=== PATIENT | male | born 2000 | race Caucasian/White ===

== ENCOUNTER 2021-08-04 16:03 | Emergency (ER) | payer SELFPAY ==
[~2021-08-04] VITALS: Ht 167.6 cm; Wt 75.0 kg
[2021-08-04] MEDS ORDERED: IV NORMAL SALINE 1,000ML 1,000 ML IV ONE (16:30)
--- NOTE | 2021-08-04 16:32 | PHYS DOC ---
Past History Past Medical History: Anxiety, Depression (BARTOLO VYAS MD) Past Surgical History: No Surgical History (CAMELIA GARCIA MD) General Adult EDM: Chief Complaint: OVERDOSE HPI: HPI: Patient is a 20-year-old male coming in via EMS after overdose. EMS states that patient took 20 to 30 mg tablets of Vyvanse. The prescription was not his. He states that it was about an hour prior to arrival, and family induced vomiting. Per EMS the family was looking for him because he had told him that he was going to overdose, states that he does not like where is [facility] right now. Patient is currently denying suicide attempt. He is withholding with history will not answer all questions. Denies any coingestions or recent illness. Denies any prior suicide attempt. (CAMELIA GARCIA MD) Review of Systems: Review of Systems: All other systems within normal limits except for as noted in the HPI (CAMELIA GARCIA MD) Current Medications: Current Meds: Current Medications Medications (Trade) Dose Ordered Sig/Amisha Start Time Stop Time Status Last Admin Dose Admin Sodium Chloride 1,000 ml @ 1,000 mls/hr 1X ONCE 08/04/21 16:30 08/04/21 17:29 UNV (CAMELIA GARCIA MD) Allergies: Allergies: Allergies Coded Allergies Type Severity Reaction Last Updated Verified No Known Drug Allergies 08/04/21 No (CAMELIA GARCIA MD) Physical Exam: PE: Constitutional: Well developed, well nourished, no acute distress, non-toxic appearance. [] HENT: Normocephalic, atraumatic, bilateral external ears normal, nose normal. [] Eyes: PERRLA, conjunctiva normal, no discharge. [] Neck: No rigidity, supple, no stridor. [] Cardiovascular: Regular rate and rhythm, brisk cap refill [] Lungs & Thorax: Non labored symmetric respirations, no tachypnea or respiratory distress [] Abdomen: Soft, nondistended. Skin: Warm, dry, no erythema, no rash. [] Back: Unremarkable Extremities: No deformities, range of motion grossly intact, no lower extremity edema [] Neurologic: Alert and oriented X 3, no focal deficits noted. [] Psychologic: Denies hallucinations, overdose but denies suicide attempt. (CAMELIA GARCIA MD) Current Patient Data: Vital Signs: Vital Signs Date Time Temp Pulse Resp B/P (MAP) Pulse Ox O2 Delivery O2 Flow Rate FiO2 08/04/21 16:08 98.1 75 18 151/85 (107) 100 (CAMELIA GARCIA MD) EKG: EKG: Sinus rhythm, heart rate 66, normal axis, no STEMI [] (CAMELIA GARCIA MD) EKG: My interpretation second EKG shows a sinus tachycardia at 103 bpm. No findings of acute STEMI with contralateral changes. No significant interval change from EKG at 427 hours. Time of this EKG [id number] hours. My interpretation of fourth EKG shows sinus rhythm at 80 bpm. No acute morphology time of fourth EKG is 2305 hrs. (BARTOLO VYAS MD) Radiology/Procedures: Radiology/Procedures: [] (CAMELIA GARCIA MD) Heart Score: C/O Chest Pain: No Risk Factors: Risk Factors: DM, Current or recent (<one month) smoker, HTN, HLP, family history of CAD, obesity. Risk Scores: Score 0 - 3: 2.5% MACE over next 6 weeks - Discharge Home Score 4 - 6: 20.3% MACE over next 6 weeks - Admit for Clinical Observation Score 7 - 10: 72.7% MACE over next 6 weeks - Early Invasive Strategies (CAMELIA GARCIA MD) Course & Med Decision Making: Course & Med Decision Making Per poison control not need to give activated charcoal since family had induced vomiting. Recommend observation for 6 hours with benzos as needed for agitation and tachycardia. (CAMELIA GARCIA MD) Course & Med Decision Making See Garcia chart for details prior shift change. Poison control advised 6 hr. observation for significant side effects of the over dosage. See the PAT eval. PCR COVID pending. Pt. discharged home on safety plan. Per PAT Impression: 1. Over Dosage- Took 20 dosages of Vyanse 30 mg 2. Hx of Depression 3. Hx. of Anxiety 4. Mild Leukocytosis 18.6 5. Viral Syndrome (BARTOLO VYAS MD) Dragon Disclaimer: Dragon Disclaimer: This electronic medical record was generated, in whole or in part, using a voice recognition dictation system. (CAMELIA GARCIA MD) Dragon Disclaimer This chart was dictated in whole or in part using Voice Recognition software in a busy, high-work load, and often noisy Emergency Department environment. It may contain unintended and wholly unrecognized errors or omissions. (BARTOLO VYAS MD) CAMELIA GARCIA MD August 04, 2021 16:32 BARTOLO VYAS MD August 04, 2021 18:48
[2021-08-04 17:35] LABS: BASO % 0 % (0-3); EOS # 0.1 x10^3/uL (0.0-0.7); EOS % 1 % (0-3); HEMOGLOBIN 16.3 g/dL (13.0-17.5); LYMPH # 2.1 x10^3/uL (1.0-4.8); LYMPH % 11 % (24-48); MEAN CORPUSCULAR HEMOGLOBIN 32 pg (25-35); MEAN CORPUSCULAR HGB CONC 35 g/dL (31-37); MEAN CORPUSCULAR VOLUME 89 fL (79-100); MONO # 0.9 x10^3/uL (0.0-1.1); MONO % 5 % (0-9); NEUT # 15.4 x10^3uL (1.8-7.7); NEUT % 83 % (31-73); PLATELET COUNT 257 x10^3/uL (140-400); RED BLOOD COUNT 5.16 x10^6/uL (4.30-5.70); WHITE BLOOD COUNT 18.6 x10^3/uL (4.0-11.0)
[2021-08-04 17:41] LABS: CALCIUM 8.9 mg/dL (8.5-10.1); CREATININE 0.8 mg/dL (0.7-1.3); POTASSIUM 4.2 mmol/L (3.5-5.1)
[2021-08-04 17:47] LABS: ACETAMIN < 2.0 mcg/mL (10-30); ETHANOL < 10 mg/dL (0-10); SALIC 0.6 mg/dL (2.8-20.0)
[2021-08-04 17:48] LABS: ALBUMIN 4.1 g/dL (3.4-5.0); ALBUMIN/GLOBULIN RATIO 1.2 (1.0-1.7); PHOSPHORUS 2.8 mg/dL (2.6-4.7); TOTAL BILIRUBIN 0.6 mg/dL (0.2-1.0); TOTAL PROTEIN 7.4 g/dL (6.4-8.2)
[2021-08-04 18:00] LABS: % LYMPHS 12 % (24-48); % MONOS 5 % (0-10); % SEGS 83 % (35-66); PLT ESTIMATE ADEQUATE (ADEQUATE)
[2021-08-04 19:55] LABS: BACTERIA,URINE 0 /HPF (0-FEW); CLARITY,URINE CLEAR; COLOR,URINE YELLOW; GLUCOSE,URINE NEG (NEG); NITRITE,URINE NEG (NEG); RBC,URINE 0 /HPF (0-2); SQUAMOUS EPITHELIAL CELL,UR OCC /LPF; UROBILINOGEN,URINE 0.2 mg/dL (0.2 mg/dL); WBC,URINE 0 /HPF (0-4)
[2021-08-04 19:59] LABS: BARBITURATES NEG (NEG); BENZODIAZEPINES NEG (NEG); CANNABINOIDS POS (NEG); COCAINE NEG (NEG); METHADONE NEG (NEG); OPIATES NEG (NEG); PHENCYCLIDINE NEG (NEG)
[2021-08-04 20:03] LABS: AMPHETAMINE/METHAMPHETAMINE POS (NEG)
[2021-08-04 20:05] LABS: INFLUENZA A PATIENT NEGATIVE (NEGATIVE); INFLUENZA B PATIENT NEGATIVE (NEGATIVE)
[2021-08-05 00:42] VITALS: BP 167/89
== END 2021-08-05 00:27 | disposition home or self-care (01) ==
LOC: ER 16:03
DX: T50.991A Poisoning by other drugs, medicaments and biological substances, accidental (unintentional), initial encounter (principal); D72.829 Elevated white blood cell count, unspecified; B34.9 Viral infection, unspecified; F41.9 Anxiety disorder, unspecified; F32.9 Major depressive disorder, single episode, unspecified; Z20.822 Contact with and (suspected) exposure to COVID-19; Y92.89 Other specified places as the place of occurrence of the external cause
CPT/HCPCS: 36415; 80053; 80307; 80329; 81001; 82550; 83735; 84100; 85007; 85025; 87428; 93005; 96360; 99284; C9803; G0480; J7030; U0003